=== PATIENT | female | born 2000 | race Caucasian/White ===

== ENCOUNTER → 2019-12-15 10:47 | Outpatient (CLI) | payer OTHER, SELFPAY ==
--- NOTE | 2019-12-15 10:48 | US_ITS ---
PROCEDURE: US OB /MATERNAL DETAIL CLINICAL INDICATION: 20 weeks gestation Anatomy exam COMPARISON: No exams were available for comparison FINDINGS: There is a single live fetus which is in cephalic presentation. heart and body motion noted. Placenta is closed and measures 3 cm transabdominal. The placenta is anterior and grade 1. Complete survey performed and was unremarkable on the submitted images as in PACS. No discrete anomalies identified on survey imaging by technologist. Active fetus. Three-vessel cord with satisfactory umbilical cord insertion. 4- chamber heart noted. Survey of brain & ventricles Unremarkable. Face and neck survey unremarkable. Diaphragm and chest views unremarkable. Abdomen: Both kidneys noted and unremarkable. Stomach noted and satisfactory. Spine: Survey of the spine satisfactory with no anomalies identified nor imaged. Both arms and legs noted. Amniotic Fluid: Adequate. Maternal adnexa: No significant findings. Measurements: Average ultrasound age 23weeks. Gestational Age 23weeks 2days Estimated due date by ultrasound age 1204/12/2020. Estimated weight 565g BPD = 23weeks OFD = 23weeks HC = 22weeks 2days AC = 23weeks 1day FL = 23weeks 3days Growth Percentile= 34percent% Heart Rate = 138bpm Cerebellum = 23 weeks 0 days Humerus = 23 weeks 0 days HC/AC is 1.1 CI is 77 percent FL/BPD is 75 percent FL/AC is 23 percent IMPRESSION: Live IUP in cephalic presentation with an average ultrasound age of 23 weeks. All parameters correlate with no obvious anomalies. Please see above for detail. Dictated by: Ramses Knutson MD 12/16/2019 09:40 Ramses Knutson MD in [place] 12/16/2019 09:40
== END ==
PROVIDERS: PCP Nurse Practitioner Obstetrics & Gynecology; Visit Provider Nurse Practitioner Obstetrics & Gynecology
DX: Z34.90 Encounter for supervision of normal pregnancy, unspecified, unspecified trimester (principal); Z3A.20 20 weeks gestation of pregnancy
CPT/HCPCS: 76805; 76811

== ENCOUNTER → 2020-01-23 11:52 | Outpatient (CLI) | payer OTHER, SELFPAY ==
[2020-01-23 12:20] LABS: Basophils % 0.3 % (0.1-2.0); Eosinophils # 0.1 K/mm3 (0.0-0.4); Eosinophils % 1.1 % (0.1-12.0); Hematocrit 34.7 % (37.0-47.0); Hemoglobin 11.2 g/dL (12.2-16.2); Lymphocytes # 1.7 K/mm3 (0.7-4.5); Lymphocytes % 16.5 % (10-50); Mean Corpuscular HGB Conc 32.3 g/dL (31.8-35.4); Mean Corpuscular Hemoglobin 30.4 pg (27.0-31.2); Mean Corpuscular Volume 94.1 fl (81-99); Mean Platelet Volume 9.4 fl (7.4-10.4); Monocytes # 0.5 K/mm3 (0.1-1.0); Monocytes % 5.1 % (1.7-9.3); Platelet Count 246 K/mm3 (142-424); Red Blood Count 3.69 M/mm3 (4.20-5.40); Red Cell Distribution Width 11.7 % (11.5-17.5); White Blood Count 10.4 K/mm3 (4.8-10.8)
[2020-01-23 12:47] LABS: Glucose,Fasting 90 mg/dl (74-100)
[2020-01-23 13:50] LABS: Glucose 1 Hour 108 mg/dL (74-100)
[2020-01-24 11:56] LABS: Rapid Plasma Reagin Ab Titer Non Reactive (NonRea<1:1)
[2020-01-24 12:23] LABS: HIV Screen 4th Generation wRfx Non Reactive (Non Reactive); Hepatitis B Surface Antigen Negative (Negative); Hepatitis C Antibody 0.1 s/co ratio (0.0-0.9); Rubella Antibodies, IgG 1.51 index (Immune >0.99)
== END ==
PROVIDERS: Visit Provider Nurse Practitioner Obstetrics & Gynecology
DX: Z34.90 Encounter for supervision of normal pregnancy, unspecified, unspecified trimester (principal)
CPT/HCPCS: 36415; 82951; 85025; 86592; 86703; 86762; 86850; 87340; 87380; G0432

== ENCOUNTER → 2020-03-16 15:59 | Outpatient (CLI) | payer OTHER, SELFPAY | PROVIDERS: Visit Provider Nurse Practitioner Obstetrics & Gynecology | DX: Z34.90 Encounter for supervision of normal pregnancy, unspecified, unspecified trimester (principal); Z3A.36 36 weeks gestation of pregnancy | CPT/HCPCS: 86403 ==

== ENCOUNTER → 2020-03-23 14:41 | Outpatient (CLI) | payer OTHER, SELFPAY ==
[2020-03-23 14:44] LABS: Microscopic, Urine URINE MICROSCOPIC (MICROSCOPIC)
[2020-03-23 15:44] LABS: Appearance,Urine SL CLOUDY (Clear); Bilirubin,Urine Negative (Negative); Blood, Urine TRACE-I (Negative); Color,Urine YELLOW (Yellow); Glucose,Urine (UA) Negative (Negative); Ketones,Urine Negative (Negative); Leukocyte Esterase,Urine 2+ (Negative); Nitrate,Urine Negative (Negative); PH,Urine 6.5 (5.0-8.5); Protein,Urine Negative (Negative); Urobilinogen,Urine 0.2 EU/dl (0.2)
[2020-03-23 16:18] LABS: Bacteria,Urine 4+ /lpf
== END ==
PROVIDERS: Visit Provider Nurse Practitioner Obstetrics & Gynecology
DX: Z3A.37 37 weeks gestation of pregnancy (principal)
CPT/HCPCS: 81001; 87086

== ENCOUNTER 2020-04-03 05:15 | Inpatient (IN) | payer OTHER, SELFPAY ==
[2020-04-03 05:24] VITALS: BMI 34.3
[2020-04-03 05:40] VITALS: BMI 34.3
[2020-04-03 05:45] VITALS: BP 148/82; PULSE 100; RESP 18; TEMP 36.8; O2SAT 99
[2020-04-03 06:19] LABS: Microscopic, Urine URINE MICROSCOPIC (MICROSCOPIC)
[2020-04-03 06:34] LABS: Appearance,Urine CLEAR (Clear); Bilirubin,Urine Negative (Negative); Blood, Urine Negative (Negative); Color,Urine YELLOW (Yellow); Glucose,Urine (UA) Negative (Negative); Ketones,Urine Negative (Negative); Leukocyte Esterase,Urine Negative (Negative); Nitrate,Urine Negative (Negative); Protein,Urine Negative (Negative); Specific Gravity, Urine 1.015 (1.005-1.030); Urobilinogen,Urine 0.2 EU/dl (0.2)
[2020-04-03 06:46] LABS: Amphetamine/Metha Screen,Urine Negative ng/ml (<1000); Barbiturates Screen,Urine Negative ng/ml (<200)
[2020-04-03 06:47] LABS: Benzodiazepines Screen,Urine Negative ng/ml (<200); Cannabinoid Screen,Urine Negative ng/ml (<50)
[2020-04-03 06:48] LABS: Cocaine Screen,Urine Negative ng/ml (<300)
[2020-04-03 06:49] LABS: Methadone Screen,Urine Negative ng/ml (<300); Opiate Screen,Urine Negative ng/ml (<300)
[2020-04-03 06:50] LABS: Phencyclidine Screen,Urine Negative ng/ml (<25)
[2020-04-03 06:53] LABS: Basophils % 0.3 % (0.1-2.0); Eosinophils # 0.2 K/mm3 (0.0-0.4); Eosinophils % 1.3 % (0.1-12.0); Hematocrit 33.1 % (37.0-47.0); Hemoglobin 10.4 g/dL (12.2-16.2); Lymphocytes # 2.3 K/mm3 (0.7-4.5); Lymphocytes % 18.2 % (10-50); Mean Corpuscular HGB Conc 31.3 g/dL (31.8-35.4); Mean Corpuscular Hemoglobin 26.2 pg (27.0-31.2); Mean Corpuscular Volume 83.6 fl (81-99); Mean Platelet Volume 9.4 fl (7.4-10.4); Monocytes # 0.6 K/mm3 (0.1-1.0); Monocytes % 4.3 % (1.7-9.3); Neutrophils # 9.7 K/mm3 (1.8-7.8); Neutrophils % 75.9 % (37.0-80.0); Platelet Count 307 K/mm3 (142-424); Red Blood Count 3.96 M/mm3 (4.20-5.40); Red Cell Distribution Width 13.5 % (11.5-17.5); White Blood Count 12.7 K/mm3 (4.8-10.8)
[2020-04-03 07:06] LABS: Coronavirus 19 IgG Antibody Negative (Negative); Coronavirus 19 IgM Antibody Negative (Negative)
--- NOTE | 2020-04-03 07:33 | HMH.PHAINT ---
MEDICATION RECONCILIATION COMPLETED ON PATIENT USING EXTERNAL FILL HISTORY FROM PHARMACY. -JENNIFER LOPEZ, J[place]ICAD
[2020-04-03 07:43] VITALS: BP 142/78; PULSE 84; RESP 18; TEMP 36.9; O2SAT 98
--- NOTE | 2020-04-03 08:22 | HMH.LABNOT ---
Labor Note - Subjective: Date: 04/03/20 Time: 08:22 regular contraction - Objective: NST:: Reactive Contractions:: every 2-3 minutes Cervical Dilation:: 4 Effacement:: 75% Station: -1 Membranes: artificially ruptured Comment:: There was copious clear fluid when I ruptured her membranes. - Assessment: Labor progressing?: Yes Cephalopelvic disproportion?: No Patient Problems: All Active Problems (Acute) - Plan: Anesthesia for epidural?: Yes Continue to labor down?: Yes Plan for ?: No Continue to monitor?: Yes Start pushing?: No
--- NOTE | 2020-04-03 08:22 | HMH.OBAPHP ---
OB - H&P: HPI Antepartum - History of Present Illness Chief complaint: She has pressure and occasional contractions at 39 weeks. History of present illness: She is a 19-year-old 1 now para 0 at 39+ weeks gestational age. She complains of pressure and occasional contractions. We have elected to augment her labor. - History of Present Criteria for establishing EDC:: LMP confirmed by 1st trimester US care: good care Ultrasounds: normal 1st trimester US, normal mid trimester US Obstetrical complications: none [facility] History I have reviewed the patient's past medical history: Yes *Have you ever received a pneumonia vaccine?: No *Have you received a flu vaccine this season?: Yes Other Surgeries: Yes: No Previous Surgery. 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 Para: 0 Review of Systems - Review of Systems Review of systems:: pertinent systems reviewed and negative unless documented below Meds Home Medications Medication Instructions Recorded Confirmed Type ondansetron 4 mg disintegrating 4 mg PO Q6H PRN #30 tab 12/05/19 04/03/20 Rx tablet Famotidine [Acid Client Coordinator] 20 mg PO DAILY 04/03/20 04/03/20 History Ferrous Sulfate 325 mg PO DAILY 04/03/20 04/03/20 History Vit Calc,Iron,Folic [Kpn] 1 tab PO DAILY 04/03/20 04/03/20 History Allergies Allergy/AdvReac Type Severity Reaction Status Date / Time No Known Allergies Allergy Verified 03/28/20 10:22 OB - H&P: Exam - Physical Exam Vital signs: Temp Pulse Resp BP Pulse Ox 98.5 F 84 18 142/78 H 98 04/03/20 07:43 04/03/20 07:43 04/03/20 07:43 04/03/20 07:43 04/03/20 07:43 - Constitutional no acute distress - Routine HEENT Exam Head: Present: normocephalic Eye: Present: EOMI, PERRL ENT: Present: mucous membranes moist - Routine Neck Exam Present: supple, full ROM - Routine Respiratory Exam Absent: accessory muscle use (good air entry bilaterally), respiratory distress, wheezes, crackles - Routine Cardiovascular Exam Present: RRR. Absent: murmur - Routine Abdominal Exam Present: soft, normoactive bowel sounds. Absent: tenderness, distended, guarding - Routine Rectal Exam Patient deferred: visual exam, digital exam - Routine Exam Patient deferred: external exam, groin exam, perineal exam - Routine Extremities Exam Present: full ROM. Absent: cyanosis, edema - Routine Skin Exam Present: intact. Absent: cyanosis - Routine Neurological Exam Present: alert, oriented X3 - Routine Psychiatric Exam Present: normal affect OB - Results - Labs Labs: Short CBC 04/03/20 Range/Units 05:45 WBC 12.7 H (4.8-10.8) K/mm3 Hgb 10.4 L (12.2-16.2) g/dL Hct 33.1 L (37.0-47.0) % Plt Count 307 (142-424) K/mm3 Urine 04/03/20 Range/Units 05:40 Urine Color Yellow (Yellow) Urine Appearance Clear (Clear) Urine pH 6.0 (5.0-8.5) Ur Specific [place] 1.015 (1.005-1.030) Urine Protein Negative (Negative) Urine Glucose (UA) Negative (Negative) OB - A/P Antepartum (1) Normal delivery Status: Acute - Additional Plan Planning to breastfeed?: Yes Plan: other Additional Information:: She is 39 weeks and this morning is 4 cm dilated 75% effaced and station -1. I ruptured membranes and there was copious clear fluid. I inserted an IUPC as well as a scalp clip. Nonstress test is reactive. We will expect a vaginal delivery.
--- NOTE | 2020-04-03 10:09 | P.PN_ITS ---
[facility] Anesthesia Checklist - Patient Identification Patient Identification: Arm Band, Verbal (Name & ) - Structural Data Admitted From: Home Planned Operative Procedure/s: Labor Epidural Consent for Planned Operative Procedure(s) Verified: Yes Verified Documents: Surgical Consent, History and Physical - Chart Verification Results Verified: CBC, UA (UDS) - Additional verifications Patient : Yes - Airway Assessment C-Spine Mobility Assessed: Yes TMJ Mobility Assessed: Yes Dentition: Good Dentition - Neurological Assessment Level of Consciousness: Awake, Alert, Appropriate, Follows Commands Hx Seizures: No Numbness or tingling in extremities: No - Anesthesia Plan Anesthesia Risk discussed: Yes Anesthesia Plan: Verified ASA Class: II Anesthesia Type: Epidural [facility] History I have reviewed the patient's past medical history: Yes *Have you ever received a pneumonia vaccine?: No *Have you received a flu vaccine this season?: Yes Anesthesia experience/problems:: None Other Surgeries: Yes: No Previous Surgery. 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
--- NOTE | 2020-04-03 11:13 | P.PN_ITS ---
Labor Note - Subjective: Date: 04/03/20 Time: 11:13 regular contraction - Objective: NST:: Reactive Contractions:: every 2-3 minutes Cervical Dilation:: 7 Effacement:: 100% Station: 0 Membranes: artificially ruptured - Fetus: monitoring type:: Internal - Assessment: Labor progressing?: Yes Cephalopelvic disproportion?: No Patient Problems: All Active Problems Normal delivery (Acute) (Acute) - Plan: Anesthesia for epidural?: Yes Continue to labor down?: Yes Plan for ?: No Continue to monitor?: Yes Start pushing?: No Comment:: She is having a few decelerations with contractions. She is 7 to 8 cm 100% St ation 0. We will go ahead and start an amnioinfusion. She is on oxygen. We will expect a vaginal delivery.
--- NOTE | 2020-04-03 14:08 | HMH.LABNOT ---
Labor Note - Subjective: Date: 04/03/20 Time: 13:45 irregular contractions - Objective: NST:: Reactive Contractions:: every 4-5 minutes Cervical Dilation:: 9-10 Effacement:: 100% Membranes: artificially ruptured - Fetus: Monitoring?: Yes monitoring type:: Internal - Assessment: Labor progressing?: Yes Cephalopelvic disproportion?: No Patient Problems: All Active Problems Normal delivery (Acute) (Acute) - Plan: Anesthesia for epidural?: Yes Continue to labor down?: Yes Plan for ?: No Continue to monitor?: Yes Start pushing?: No Comment:: We will allow the head to continue to come down a little bit more. She feels pressure with contractions so we will have her bear down as well with each contraction.
[2020-04-03 14:56] LABS: Cord Blood PH 7.19 (7.35-7.45)
--- NOTE | 2020-04-03 15:09 | HMH.DN ---
- Delivery Note Delivery Date:: 04/03/20 Delivery Time:: 14:33 Anesthesia Type: Epidural Was labor medically induced?: Yes Induction method: per pitocin protocol Gestational age (weeks): 39 delivered prior to 39 weeks?: No Gender: Female at 1 minute: 8 at 5 minutes: 9 LAC or MLE?: LAC Delivery Procedure:: She is a 19-year-old 1 para 0 who was term and was feeling lots of pressure. As result of that we elected to augment her labor at term. She was started on IV oxytocin and had her membranes ruptured. Under labor epidural she progressed to full dilation and delivered spontaneously a liveborn female child at 2:33 PM in the afternoon of April 03, 2020. On deliver the head the anterior shoulder then delivered followed by the rest the infant's body atraumatically. The baby was vigorous and cried spontaneously. The oropharynx and nasopharynx were bulb suction. We allowed the cord to continue to pulsate for approximately 1 minute. Of note the cord was quite short. The cord was then doubly clamped and cut and the infant was placed on the mother's abdomen for further care. The nurses assigned Apgars of 8 at 1 minute and 9 at 5 minutes. She then received IV oxytocin and using gentle traction on the cord and countertraction the fundus I was able to easily deliver the placenta intact. Had normal three-vessel cord. She had a small left posterior vaginal laceration near the introitus that was repaired with interrupted 3-0 Vicryl Rapide suture. She has been Rh- blood, she is rubella immune and was group B streptococcus negative. She plans to breast-feed. Her estimated blood loss was just 200 cc. Laceration:: vaginal Placental Delivery Description: Spontaneous
[2020-04-03 20:31] VITALS: BP 129/79; PULSE 102; RESP 18; TEMP 36.9; O2SAT 99
[2020-04-04 04:54] VITALS: BP 117/61; PULSE 94; RESP 18; TEMP 36.8; O2SAT 100
[2020-04-04 06:52] LABS: Hemoglobin 9.3 g/dL (12.2-16.2)
[2020-04-04 09:33] VITALS: BP 131/82; PULSE 99; RESP 18; TEMP 37.1; O2SAT 97
--- NOTE | 2020-04-04 09:47 | SW/DCPLANNER ---
Addendum entered by Karen Westbrook 04/04/20 10:06: I have made a referral to E[facility] with [facility] program in [place]. Original Note: I have received a referral for this patient regarding: positive THC for once visit. Patient positive urine drug screen was on 12/05/2019 which was positive for THC. Patient was also tested on: 01/01, 01/22, 02/12, 03/28 and 04/03 which were all negative. Patient infant female (Noemi Painter) was born on 04/03/2020. Infants father (Bud Painter 01/28/94) was present at time of my visit. Patient, Bud and infant will reside at [address] [place] [address] in [facility] [address] . This is patient and fathers first child. Patient will become established with [facility] and is interested in [facility] program and I will make this referral today. Patient does have: crib, carseat, clothing, diapers and will be . Patient anticipates discharge home tomorrow. Patient has no further questions or needs at this time.
--- NOTE | 2020-04-04 10:31 | HMH.ACPN2 ---
Internal Medicine - PN: Subj *Date: 04/04/20 *Time: 10:31 Interval history: She is 1 day from a vaginal delivery. She is doing very well. She is eating and drinking and ambulating. She is breast-feeding. Her lochia is normal. Exam Vital signs and Labs for Last 24 Hours: Temp Pulse Resp BP Pulse Ox 98.3 F 94 H 18 117/61 100 04/04/20 04:54 04/04/20 04:54 04/04/20 04:54 04/04/20 04:54 04/04/20 04:54 Laboratory Results - last 24 hr 04/03/20 14:51: Cord ABG pH 7.19 L* 04/04/20 06:27: Hgb 9.3 L, Hct 29.0 L 04/04/20 06:27: Baby's Rh Status Positive I & O for Last 24 hours: Intake & Output 04/01/20 04/02/20 04/03/20 04/04/20 11:59 11:59 11:59 11:59 Weight 176 lb - Constitutional no acute distress - *Routine HEENT Exam Head: Present: normocephalic Eye: Present: EOMI, PERRL ENT: Present: mucous membranes moist Assessment and Plan (1) Normal delivery Status: Acute Category: Medical Code(s): O80 - Encounter for full-term uncomplicated delivery - Assessment and plan all Dx Assessment and Plan for all problems:: She is doing very well this morning. We will plan to send her home tomorrow.
[2020-04-04 12:35] VITALS: BP 137/63; PULSE 106; RESP 18; TEMP 36.8; O2SAT 97
[2020-04-04 16:33] VITALS: BP 132/75; PULSE 95; RESP 18; TEMP 36.8; O2SAT 99
--- NOTE | 2020-04-05 09:18 | HMH.OBDCSM ---
General - General Admission date:: 04/03/20 Discharge date: 04/05/20 HPI - History of Present Illness History of present illness: She is a 19-year-old 2 now para 1 aborta 1 who is 39 weeks gestational age. She was feeling pressure and discomfort so we elected to induce her labor at term. Hospital Course Hospital Course: She was started on IV oxytocin had her membranes ruptured. Under labor epidural progressed to full dilation and delivered spontaneously a liveborn female child at 2:32 PM in the afternoon of April 03, 2020. The baby weighed 6 pounds 5 ounces and was 17 inches long. She had Apgars of 8 at 1 minute and 9 at 5 minutes. She is breast-feeding. She has done well and is eating and drinking and ambulating. She is breast-feeding. She has be Rh- blood and has received RhoGam. She is rubella immune and was group B streptococcus negative. Her supplier quality specialist Dr. Harmon. She is discharged home to follow-up with me in approximately 2 weeks time. She will continue with her vitamins and iron. Her condition on discharge is stable and improved. Rhogam Administration: Given Objective Vital signs: Temp Pulse Resp BP Pulse Ox 98.3 F 95 H 18 132/75 99 04/04/20 16:33 04/04/20 16:33 04/04/20 16:33 04/04/20 16:33 04/04/20 16:33 no acute distress - *Routine HEENT Exam Head: Present: normocephalic Eye: Present: EOMI, PERRL ENT: Present: mucous membranes moist Results Labs on day of discharge: Labs from last 24 hours 04/04/20 04/04/20 12:20 06:27 Blood Type B Negative Antibody Screen Negative Screen Negative Baby's Rh Status Positive Rhogam Infusion Rhogam release DS: Diagnosis - Discharge Diagnosis (1) Normal delivery Status: Acute Discharge Plan - Patient Discharge Instructions ACTIVITY: No heavy lifting DIET: continue same diet Additional Instructions: NOTHING IN THE VAGINA FOR 6 WEEKS NO HEAVY LIFTING OR STRENUOUS ACTIVITY. Patient Instructions: Depression, Hemorrhage, DI for Labor and Delivery, Vaginal , DI for Pre-eclampsia, Preventing the Spread of Coronavirus Discharge Instructions - Follow up Plan Follow up with: Sameer Richardson MD [Primary Care Provider] - Disposition: Home, Self-Usp Medications: Home Medications Medication Instructions Recorded Confirmed Type ondansetron 4 mg disintegrating 4 mg PO Q6H PRN #30 tab 12/05/19 04/03/20 Rx tablet Famotidine [Acid Service Car Operator] 20 mg PO DAILY 04/03/20 04/03/20 History Ferrous Sulfate 325 mg PO DAILY 04/03/20 04/03/20 History Vit Calc,Iron,Folic [Kpn] 1 tab PO DAILY 04/03/20 04/03/20 History Prescriptions/Medication Reconciliation: Continued ondansetron 4 mg disintegrating tablet 4 mg PO Q6H PRN #30 tab PRN Reason: nausea and vomiting Vit Calc,Iron,Folic [Kpn] 1 tab PO DAILY Famotidine [Acid Service Car Operator] 20 mg PO DAILY Ferrous Sulfate 325 mg PO DAILY - Problem Reconciliation Problems Reviewed?: Yes
== END 2020-04-05 11:33 | disposition home or self-care (01) | DRG 807 ==
PROVIDERS: Admitting Provider Nurse Practitioner Obstetrics & Gynecology; PCP Nurse Practitioner Obstetrics & Gynecology; Visit Provider Nurse Practitioner Obstetrics & Gynecology
DX: O70.0 First degree perineal laceration during delivery (principal); Z37.0 Single live birth; Z3A.39 39 weeks gestation of pregnancy; Z23 Encounter for immunization
CPT/HCPCS: 59409; 36415; 59025; 80305; 81001; 82800; 85014; 85018; 85025; 85461; 86328; 86850; 90686; 94761; C1758; J2790

== ENCOUNTER → 2021-04-12 13:50 | Outpatient (CLI) | payer OTHER, SELFPAY ==
[2021-04-12 15:17] LABS: HCG,Quantitative 8852 mIU/ml (0-5.42)
== END ==
PROVIDERS: Visit Provider Obstetrics & Gynecology
DX: Z34.90 Encounter for supervision of normal pregnancy, unspecified, unspecified trimester (principal)
CPT/HCPCS: 36415; 84702

== ENCOUNTER → 2021-04-26 14:25 | Outpatient (CLI) | payer OTHER, SELFPAY ==
--- NOTE | 2021-04-26 14:31 | US_ITS ---
FINAL REPORT CLINICAL HISTORY: dates FINDINGS: Sonographic images of the pelvis were obtained. There is a single living intrauterine . [place]-rump length measures 1.49 cm corresponding to 7 weeks 6 day gestation. Heartbeat is detected at 165 bpm. IMPRESSION: Single living intrauterine . Reviewed, Interpreted and Dictated by Pranav Martini III, MD Transcribed by Ava Stokes Authenticated by Pranav Martini III, MD on 04/26/2021 04:29:19 PM [facility]
== END ==
PROVIDERS: PCP Pediatrics; Visit Provider Obstetrics & Gynecology
DX: Z34.90 Encounter for supervision of normal pregnancy, unspecified, unspecified trimester (principal)
CPT/HCPCS: 76801

== ENCOUNTER → 2021-05-21 15:20 | Outpatient (CLI) | payer OTHER, SELFPAY ==
[2021-05-21 15:55] LABS: Basophils # 0.1 K/mm3 (0-0.2); Basophils % 0.9 % (0.1-2.0); Eosinophils # 0.2 K/mm3 (0.0-0.4); Eosinophils % 1.4 % (0.1-12.0); Hematocrit 36.2 % (37.0-47.0); Hemoglobin 11.8 g/dL (12.2-16.2); Lymphocytes # 2.3 K/mm3 (0.7-4.5); Lymphocytes % 20.5 % (10-50); Mean Corpuscular HGB Conc 32.7 g/dL (31.8-35.4); Mean Corpuscular Hemoglobin 29.2 pg (27.0-31.2); Mean Corpuscular Volume 89.1 fl (81-99); Mean Platelet Volume 10.1 fl (7.4-10.4); Monocytes # 0.5 K/mm3 (0.1-1.0); Monocytes % 4.3 % (1.7-9.3); Neutrophils % 72.8 % (37.0-80.0); Platelet Count 278 K/mm3 (142-424); Red Blood Count 4.06 M/mm3 (4.20-5.40); Red Cell Distribution Width 14.7 % (11.5-17.5)
[2021-05-21 17:43] LABS: Thyroid Stimulating Hormone 0.37 uIU/mL (0.465-4.68)
[2021-05-23 08:31] LABS: Hepatitis B Surface Antigen Negative (Negative); Hepatitis C Antibody 0.1 s/co ratio (0.0-0.9); Rubella Antibodies, IgG 1.26 index (Immune >0.99)
[2021-05-23 11:14] LABS: Rapid Plasma Reagin Ab Titer Non Reactive (NonRea<1:1)
[2021-05-23 12:11] LABS: HIV Screen 4th Generation wRfx Non Reactive (Non Reactive)
== END ==
PROVIDERS: PCP Family Medicine; Visit Provider Obstetrics & Gynecology
DX: Z34.90 Encounter for supervision of normal pregnancy, unspecified, unspecified trimester (principal); R09.89 Other specified symptoms and signs involving the circulatory and respiratory systems
CPT/HCPCS: 36415; 84443; 85025; 86592; 86703; 86762; 86850; 87086; 87088; 87186; 87340; 87380; G0432

== ENCOUNTER → 2021-07-19 12:37 | Outpatient (CLI) | payer OTHER, SELFPAY ==
--- NOTE | 2021-07-19 12:37 | US_ITS ---
FINAL REPORT CLINICAL HISTORY: anatomy scan, OB complete FINDINGS: There is a single live intrauterine gestation. Presentation is cephalic. Placenta is posterior, height, grade 1. movement is noted. Heart rate is measured at 146 beats per minute. Three-vessel cord with satisfactory umbilical cord insertion. Four-chamber heart is noted. brain and ventricles are unremarkable. Chest and diaphragm are unremarkable. ABDOMEN: Bladder is unremarkable. Stomach is unremarkable. SPINE: No anomalies identified. Both arms and legs noted. AMNIOTIC FLUID: Appropriate amount. MEASUREMENTS: ULTRASOUND AGE: 20 weeks 2 days. GESTATION AGE: 20 weeks 2 days. ESTIMATED WEIGHT: 344 g GROWTH PERCENTILE: 45 % BPD: 4.7 cm corresponding with 20 weeks 3 days. OFD: 6 cm corresponding with 20 weeks 3 days. HC: 17 cm corresponding with 19 weeks 5 days. AC: 15.1 cm corresponding with 20 weeks 3 days. FL: 13.3 cm corresponding with 20 weeks 3 days. CEREBELLUM: 2 cm corresponding with 20 weeks 1 days. HUMERUS: 3.1 cm corresponding with 20 weeks 2 days. NUCH FOLD: 1.5 mm HC/AC: 1.13 CI: 79 FL/BPD: 70% FL/AC: 22% IMPRESSION: Single living IUP with an ultrasound age of 20 weeks 2 days. Reviewed, Interpreted and Dictated by Pranav Martini III, MD Transcribed by Magaly Grigsby Authenticated by Pranav Martini III, MD on 07/19/2021 02:34:05 PM [facility]
== END ==
PROVIDERS: PCP Family Medicine; Visit Provider Obstetrics & Gynecology
DX: Z34.90 Encounter for supervision of normal pregnancy, unspecified, unspecified trimester (principal)
CPT/HCPCS: 76805

== ENCOUNTER → 2021-09-13 14:23 | Outpatient (CLI) | payer OTHER, SELFPAY ==
[2021-09-13 15:30] LABS: Basophils # 0.2 K/mm3 (0-0.2); Basophils % 1.8 % (0.1-2.0); Eosinophils # 0.1 K/mm3 (0.0-0.4); Eosinophils % 1.3 % (0.1-12.0); Hematocrit 30.1 % (37.0-47.0); Hemoglobin 9.9 g/dL (12.2-16.2); Lymphocytes % 19.6 % (10-50); Mean Corpuscular HGB Conc 32.9 g/dL (31.8-35.4); Mean Corpuscular Hemoglobin 27.7 pg (27.0-31.2); Mean Corpuscular Volume 84.3 fl (81-99); Mean Platelet Volume 9.4 fl (7.4-10.4); Monocytes # 0.3 K/mm3 (0.1-1.0); Monocytes % 3.4 % (1.7-9.3); Neutrophils # 7.4 K/mm3 (1.8-7.8); Platelet Count 328 K/mm3 (142-424); Red Blood Count 3.57 M/mm3 (4.20-5.40); Red Cell Distribution Width 14.3 % (11.5-17.5)
[2021-09-13 16:02] LABS: Glucose,Fasting 82 mg/dl (74-100)
[2021-09-13 17:21] LABS: Glucose 1 Hour 122 mg/dL (74-100)
== END ==
PROVIDERS: Visit Provider Obstetrics & Gynecology
DX: Z34.90 Encounter for supervision of normal pregnancy, unspecified, unspecified trimester (principal)
CPT/HCPCS: 36415; 82951; 85025

== ENCOUNTER 2021-09-16 11:36 | Outpatient (CLI) | payer OTHER, SELFPAY ==
[2021-09-16 11:40] VITALS: BP 126/61; PULSE 105; RESP 18; O2SAT 100
== END 2021-09-16 11:55 | disposition home or self-care (01) ==
LOC: LAB 11:37 → INF 12:00
PROVIDERS: Visit Provider Obstetrics & Gynecology
DX: O26.899 Other specified pregnancy related conditions, unspecified trimester (principal); Z67.91 Unspecified blood type, Rh negative; Z3A.28 28 weeks gestation of pregnancy
CPT/HCPCS: 96372; J2790

== ENCOUNTER → 2021-10-24 10:01 | Outpatient (CLI) | payer OTHER, SELFPAY ==
--- NOTE | 2021-10-24 10:05 | US_ITS ---
FINAL REPORT CLINICAL HISTORY: Growth and HECTOR FINDINGS: There is a single live intrauterine gestation. Presentation is cephalic. Placenta is posterior, high, grade 2. Heart rate is 158 beats per minute. movement and respiratory motion is seen. AMNIOTIC FLUID: Appropriate amount. HECTOR: 11.5 cm MEASUREMENTS: ULTRASOUND AGE: 34 weeks 1 day. GESTATION AGE: 34 weeks 1 day. ESTIMATED WEIGHT: 2334 g GROWTH PERCENTILE: 40% BPD: 8.5 cm corresponding with 34 weeks 3 days. OFD: 10.7 cm corresponding with 34 weeks 1 days. HC: 30.4 cm corresponding with 33 weeks 6 days. AC: 30.1 cm corresponding with 34 weeks 1 days. FL: 6.6 cm corresponding with 34 weeks 0 days. HC/AC: 1.01 CI: 79% FL/BPD: 77% FL/AC: 22% IMPRESSION: Single living IUP with an ultrasound age of 34 weeks 1 days. HECTOR of 11.5 cm Reviewed, Interpreted and Dictated by Kamari Nickerson MD Transcribed by Magaly Grigsby Authenticated and [facility]
== END ==
PROVIDERS: Visit Provider Obstetrics & Gynecology
DX: O36.5990 Maternal care for other known or suspected poor fetal growth, unspecified trimester, not applicable or unspecified (principal)
CPT/HCPCS: 76816

== ENCOUNTER → 2021-11-08 06:42 | Outpatient (CLI) | payer OTHER, SELFPAY | PROVIDERS: Visit Provider Obstetrics & Gynecology | DX: Z34.90 Encounter for supervision of normal pregnancy, unspecified, unspecified trimester (principal) | CPT/HCPCS: 86403 ==

== ENCOUNTER 2021-11-22 05:12 | Inpatient (IN) | payer OTHER, SELFPAY ==
[2021-11-22] VITALS (11 sets, daily range): BP systolic 90–148; BP diastolic 47–98; PULSE 90–111; RESP 12–18; TEMP 36.4–36.6; O2SAT 97–100; BMI 38.0
[2021-11-22 06:08] LABS: Coronavirus 19, PCR Not Detected (NotDetected); Influenza A, PCR Not Detected (NotDetected); Influenza B, PCR Not Detected (NotDetected)
[2021-11-22 06:08] LABS: Microscopic, Urine URINE MICROSCOPIC (MICROSCOPIC)
[2021-11-22 06:17] LABS: Appearance,Urine CLOUDY (Clear); Bilirubin,Urine Negative (Negative); Blood, Urine Negative (Negative); Color,Urine YELLOW (Yellow); Glucose,Urine (UA) Negative (Negative); Ketones,Urine Negative (Negative); Leukocyte Esterase,Urine 1+ (Negative); Nitrate,Urine Negative (Negative); Protein,Urine 1+ (Negative); Specific Gravity, Urine 1.015 (1.005-1.030); Urobilinogen,Urine 0.2 EU/dl (0.2)
[2021-11-22 06:18] LABS: Basophils # 0.1 K/mm3 (0-0.2); Basophils % 0.7 % (0.1-2.0); Eosinophils # 0.2 K/mm3 (0.0-0.4); Eosinophils % 1.5 % (0.1-12.0); Hematocrit 30.6 % (37.0-47.0); Hemoglobin 9.9 g/dL (12.2-16.2); Lymphocytes # 2.5 K/mm3 (0.7-4.5); Lymphocytes % 25.2 % (10-50); Mean Corpuscular HGB Conc 32.3 g/dL (31.8-35.4); Mean Corpuscular Hemoglobin 26.2 pg (27.0-31.2); Mean Corpuscular Volume 81.2 fl (81-99); Mean Platelet Volume 11.5 fl (7.4-10.4); Monocytes # 0.4 K/mm3 (0.1-1.0); Monocytes % 4.4 % (1.7-9.3); Neutrophils # 6.7 K/mm3 (1.8-7.8); Neutrophils % 68.2 % (37.0-80.0); Platelet Count 279 K/mm3 (142-424); Red Blood Count 3.77 M/mm3 (4.20-5.40); Red Cell Distribution Width 17.2 % (11.5-17.5); White Blood Count 9.8 K/mm3 (4.8-10.8)
[2021-11-22 06:32] LABS: Barbiturates Screen,Urine Negative ng/ml (<200)
[2021-11-22 06:33] LABS: Amphetamine/Metha Screen,Urine Negative ng/ml (<1000); Benzodiazepines Screen,Urine Negative ng/ml (<200)
[2021-11-22 06:34] LABS: Cannabinoid Screen,Urine Negative ng/ml (<50)
[2021-11-22 06:35] LABS: Cocaine Screen,Urine Negative ng/ml (<300); Methadone Screen,Urine Negative ng/ml (<300)
[2021-11-22 06:36] LABS: Opiate Screen,Urine Negative ng/ml (<300); Phencyclidine Screen,Urine Negative ng/ml (<25)
[2021-11-22 06:40] LABS: Bacteria,Urine Trace /lpf
[2021-11-22 07:56] LABS: Chloride 107 mmol/L (98-107); Potassium 4.2 mmoL/L (3.5-5.1); Sodium 135 mmol/L (136-145)
[2021-11-22 07:59] LABS: Alanine Aminotransferase 17 U/L (12-78); Albumin Level 3.1 g/dl (3.5-5.0); Alkaline Phosphatase 194 U/L (38-126); Anion Gap 10.2 mEq/L (5-15); Aspartate Amino Transferase 29 U/L (14-36); Bilirubin,Total 0.3 mg/dl (0.2-1.3); Blood Urea Nitrogen 9 mg/dl (7-17); Carbon Dioxide 22 mmol/L (22.0-30.0); Creatinine Clearance Estimated 204 mL/min (50-200); Estimated Glomerular Filt Rate 124 ml/min (>60); GFR (African American) 150 ML/MIN (>60); Globulin 3.1 g/dL (1.3-3.2); Total Protein,Serum 6.2 g/dl (6.3-8.2)
[2021-11-22 08:00] LABS: Calcium 9.9 mg/dl (8.4-10.2); Glucose 104 mg/dl (74-100)
--- NOTE | 2021-11-22 09:19 | HMH.HP ---
*Admission Date: 11/22/21 *Chief complaint: induction of labor *History of present illness: 21 yo @ 38 3/7 weeks admitted for induction of labor care at [facility]--Dr. Najera PROSPER 12/04/21; dating by LMP = 7 6 ultrasound Elevated blood pressure and 100mg protein on urine dip at office appointment 11/21/21 Induction of labor recommended for induced hypertension LFTs normal No headache, visual changes or epigastric pain complicated by anemia (Hgb 9.9) and Rh negative maternal status Rhogam prophylaxis given 09/13/21 Recent estimate of growth 40% [facility] History I have reviewed the patient's past medical history: Yes Medical History: Denies:: Seizures *Have you ever received a pneumonia vaccine?: No *Have you received a flu vaccine this season?: No Other Surgeries: Yes: No Previous Surgery. 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 Para: 1 Review of Systems - Review of Systems Review of systems:: pertinent systems reviewed and negative unless documented below - Eyes Denies blurry vision - *Gastrointestinal Denies abdominal pain - *Genitourinary Denies abnormal vaginal bleeding - *Neurologic Denies headache(s) Meds Home Medications Medication Instructions Recorded Confirmed Type prenat.vits,jameel,oig-ocqj-aeknd 1 tab PO DAILY #30 tab 05/03/21 11/22/21 Rx Omeprazole 20 mg PO DAILY 11/22/21 11/22/21 History Allergies Allergy/AdvReac Type Severity Reaction Status Date / Time No Known Allergies Allergy Verified 11/21/21 10:52 Exam Vital signs and Labs for Last 24 Hours: Temp Pulse Resp BP Pulse Ox 97.8 F 104 H 18 148/98 H 100 11/22/21 06:44 11/22/21 06:44 11/22/21 06:44 11/22/21 06:44 11/22/21 06:44 Laboratory Results - last 24 hr 11/22/21 05:47: WBC 9.8, RBC 3.77 L, Hgb 9.9 L, Hct 30.6 L, MCV 81.2, MCH 26.2 L, MCHC 32.3, RDW 17.2, Plt Count 279, MPV 11.5 H, Neut % (Auto) 68.2, Lymph % (Auto) 25.2, [place] % (Auto) 4.4, Eos % (Auto) 1.5, Baso % (Auto) 0.7, Neut # (Auto) 6.7, Lymph # (Auto) 2.5, [place] # (Auto) 0.4, Eos # (Auto) 0.2, Baso # (Auto) 0.1 11/22/21 05:47: Urine Color Yellow, Urine Appearance Cloudy, Urine pH 7.0, Ur Specific [place] 1.015, Urine Protein 1+, Urine Glucose (UA) Negative, Urine Ketones Negative, Urine Blood Negative, Urine Nitrate Negative, Urine Bilirubin Negative, Urine Urobilinogen 0.2, Ur Leukocyte Esterase 1+ A, Urine RBC None, Urine WBC 5-10, Ur Squamous Epith Cells 3-5, Urine Bacteria Trace 11/22/21 05:47: Urine Opiates Screen Negative, Urine Methadone Screen Negative, Ur Barbituates Screen Negative, Ur Phencyclidine Scrn Negative, Ur Amphetamines Screen Negative, U Benzodiazepines Scrn Negative, Urine Cocaine Screen Negative, U Marijuana (THC) Screen Negative 11/22/21 05:47: Blood Type B Negative, Antibody Screen Negative 11/22/21 05:47: Sodium 135 L, Potassium 4.2, Chloride 107, Carbon Dioxide 22, Anion Gap 10.2, BUN 9, Creatinine 0.60, Estimated Creat Clear 204, Estimated GFR 124, Est GFR ( Amer) 150, Glucose 104 H, Calcium 9.9, Total Bilirubin 0.3, AST 29, ALT 17, Alkaline Phosphatase 194 H, Total Protein 6.2 L, Albumin 3.1 L, Globulin 3.1, Albumin/Globulin Ratio 1.0 L 11/22/21 05:50: SARS-CoV-2 (PCR) Not detected, Influenza A Untype (PCR) Not detected, Influenza Type B (PCR) Not detected I & O for Last 24 hours: Intake & Output 11/19/21 11/20/21 11/21/21 11/22/21 11:59 11:59 11:59 11:59 Weight 195 lb - Constitutional no acute distress - *Routine HEENT Exam Head: Present: normocephalic Eye: Absent: conjunctival icterus, scleral injection ENT: Present: mucous membranes moist - *R
--- NOTE | 2021-11-22 10:28 | HMH.LABNOT ---
Labor Note - Subjective: Date: 11/22/21 Time: 10:28 Comment:: called to evaluate bradycardia approximately 20 minutes after epidural placement, heart tones dropped into the 90s, with slow resolution pitocin turned off and patient repositioned, with supplemental O2 intermittent resolution of bradycardia in short term with subsequent decrease emergent cs called with heart rate in the 70s for 3 minutes patient counseled for immediate delivery with cs and questions answered consent form signed - Objective: Cervical Dilation:: 4 Effacement:: 75% Station: -1 Membranes: artificially ruptured - Fetus: monitoring type:: Internal - Assessment: Patient Problems: All Active Problems bradycardia (Acute) 38 weeks gestation of (Acute) PIH ( induced hypertension) (Acute) Anemia affecting (Acute) Rh negative status during (Acute) Urinary tract infection affecting (Acute) Positive urine drug screen (Acute) (Acute)
[2021-11-22 10:43] LABS: Cord Blood PH 7.06 (7.35-7.45)
--- NOTE | 2021-11-22 11:35 | P.PN_ITS ---
[facility] Anesthesia Checklist - Patient Identification Patient Identification: Arm Band - Structural Data Admitted From: Inpatient Planned Operative Procedure/s: Labor Epidural/Primary C/S Consent for Planned Operative Procedure(s) Verified: Yes Verified Documents: Surgical Consent, History and Physical - NPO Status Verified Time NPO: 00:00 - Additional verifications Anesthesia Reactions: No - Airway Assessment C-Spine Mobility Assessed: Yes TMJ Mobility Assessed: Yes Dentition: Good Dentition - Neurological Assessment Level of Consciousness: Awake, Alert - Anesthesia Plan Anesthesia Risk discussed: Yes Anesthesia Plan: Verified ASA Class: II Anesthesia Type: Epidural [facility] History I have reviewed the patient's past medical history: Yes Medical History: Denies:: Seizures *Have you ever received a pneumonia vaccine?: No *Have you received a flu vaccine this season?: No Anesthesia experience/problems:: nac Other Surgeries: Yes: No Previous Surgery. 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
--- NOTE | 2021-11-22 11:35 | P.PN_ITS ---
[facility] Anesthesia Record Part I Intake, IV Amount: 800 Estimated blood loss (mL): 800 Urine output (mL): 100 Blood Pressure: 113/73 SaO2: 97 Pulse Rate: 105 Respiratory Rate: 16 Temperature: 98 F Patient is:: Awake, Stable Stable to PACU at:: 11:25
--- NOTE | 2021-11-22 11:53 | P.OP_ITS ---
Date of procedure: 11/22/21 Pre-op Diagnosis:: 1. 38 4/7 2. induced hypertension 3. bradycardia Post-op Diagnosis:: 1. 38 4/7 2. induced hypertension 3. bradycardia 4. Placental abruption Procedure performed:: Low Transverse C Section Surgeon:: Prachi Najera MD CREDIT COLLECTION SPECIALIST:: Other Anesthesia: epidural Estimated blood loss (mL): 800 Operative findings:: Live born female infant in vertex presentation Apgars 6 (1min) and 9 (5 min) cord pH 7.06 Moderate clot in uterus at time of delivery Operative note:: The patient was taken to the OR and spin was prepped and draped in normal sterile fashion. A pfannenstiel skin incision was made with the scalpel and carried down to the fascia. The fascia was incised in the midline and sharply dissected off the rectus muscles. The muscles were in the midline and the peritoneum was entered sharply and extended bluntly. The Javi-O self retaining retractor was placed in the abdomen and a bladder flap was created. The uterus was incised in the lower uterine segment in a transverse fashion and extended bluntly. The was delivered in controlled fashion, without complication or shoulder dystocia. Approximately 300cc of clot was noted in the uterus at time of delivery, consistent with abruption. The was handed to awaiting nursing staff for evaluation after the umbilical cord was clamped and cut. Cord blood was collected and a cord segment was preserved. The FSE was still attached to the vertex at time of delivery and because the monitor was pulled through the uterus abdominally, additional antibiotics were ordered (Flagyl). The IUPC was removed vaginally. The placenta was manually extracted and noted to be intact; it was sent for pathology. The uterus was repaired with 0-vicryl in a running/locked fashion. A second layer was placed for hemostasis. The bladder flap was closed with 2-0 vicryl in a running fashion. The peritoneum was closed with 2-0 vicryl in a running fashion. The fascia was closed with #1 vicryl in a running fashion. The subcutaneous fat was closed with 2-0 vicryl in an interrupted fashion. The skin was closed with 2-0 stratafix in a subcuticular fashion. The patient tolerated the procedure well. Sponge, lap, needle and instrument counts were correct x 2. TAP block was placed by anesthesia after conclusion of procedure. She was taken to PACU awake and in stable condition. Condition: stable Disposition: PACU Specimens:: 1. Placenta 2. Cord pH Complications:: none
--- NOTE | 2021-11-22 12:10 | SUR.PHASEI ---
1158 Barber Watkins called and gave report to Barber Knott OB RN 1200 transported via bed to OB room. vital signs stable. denies pain. left in stable condition with Barber Knott OB RN at bedside.
--- NOTE | 2021-11-22 12:13 | SUR.PHASEI ---
LATE ENTRY 1130 QBL protocol initiated. Attempted to contact Dr. Najera by calling office, cell phone, and OB by Barber Watkins, MARTY. No answer. 2 units PRBC placed on hold. Lab notified of PRBC's on hold. 18g IV placed left forearm by Barber Watkins RN. 1137 Dr. Najera returned call and stated to proceed with protocol. Stated she was okay with only infusing routine pitocin at this time. No orders for methergine or hemabait ordered. No new orders given.
--- NOTE | 2021-11-22 12:45 | P.PN_ITS ---
[facility] Anesthesia Record Part II Discharge Time: 11:35 Destination: Obstetric PACU nurse assessment reviewed?: Yes Patient Condition:: Good Anesthesia Complications:: None Swallowing reflex intact?: Yes Cyanosis?: No Blood Pressure: 95/53 Pulse Rate: 106 Temperature: 97.5 F Mental Status: Alert & Oriented Pain level:: 0 Nausea and/or vomitting:: None Intake, IV Amount: 0
[2021-11-22 14:56] LABS: Hematocrit 24.3 % (37.0-47.0)
[2021-11-22 15:15] LABS: Hemoglobin 7.9 g/dL (12.2-16.2)
--- NOTE | 2021-11-22 16:26 | HMH.PHAVTE ---
[facility] Pharmacy VTE Monitoring - Patient Demographics Admission date: 11/22/21 Report Date: 11/22/21 Time: 16:26 Allergies/Adverse Reactions: Patient Allergies No Known Allergies Allergy (Verified 11/21/21 10:52) Height: 1.52 m Weight: 88.451 kg Patient Problems: Current Active Problems 38 weeks gestation of (Acute) PIH ( induced hypertension) (Acute) Anemia affecting (Acute) Rh negative status during (Acute) - VTE Risk Labs: VTE Related Lab Results Hgb 7.9 g/dL (12.2-16.2) L D 11/22/21 14:42 Hct 24.3 % (37.0-47.0) L 11/22/21 14:42 Plt Count 279 K/mm3 (142-424) 11/22/21 05:47 BUN 9 mg/dl (7-17) 11/22/21 05:47 Creatinine 0.60 mg/dl (0.52-1.04) 11/22/21 05:47 Estimated Creat Clear 204 mL/min (50-200) 11/22/21 05:47 - Prophylaxis VTE Prophylaxis Ordered?: Yes Types of VTE Prophylaxis: IPCS Thigh High Location of Applied Device: Bilateral Lower Extremeties
[2021-11-23] VITALS (21 sets, daily range): BP systolic 120–145; BP diastolic 62–89; PULSE 86–121; RESP 16–18; TEMP 36.6–36.9; O2SAT 98–100
[2021-11-23 07:02] LABS: Hematocrit 19.8 % (37.0-47.0); Hemoglobin 6.3 g/dL (12.2-16.2)
--- NOTE | 2021-11-23 13:09 | P.PN_ITS ---
Internal Medicine - PN: Subj *Date: 11/23/21 *Time: 13:09 Interval history: POD #1 primary CS Clinical evidence of placental abruption noted at time of delivery Hgb dropped from 9.9 at admission to 6.3 on POD#1 Transfusion of 2 units packed red cells in progress Currently asymptomatic with [id number]-[id number] anemia Lochia appropriate BP stable since delivery Tolerating regular diet Ambulating and voiding without difficulty Pain control sufficient Exam Vital signs and Labs for Last 24 Hours: Temp Pulse Resp BP Pulse Ox 98.3 F 110 H 18 130/62 98 11/23/21 12:52 11/23/21 12:52 11/23/21 12:52 11/23/21 12:52 11/23/21 12:52 Laboratory Results - last 24 hr 11/22/21 05:47: Blood Type B Negative, Antibody Screen Negative, Crossmatch (AHG) See Detail 11/22/21 14:42: Hgb 7.9 L D, Hct 24.3 L 11/23/21 06:00: Screen Negative, Baby's Rh Status Positive, Rhogam Infusion Rhogam release 11/23/21 06:13: Hgb 6.3 L* D, Hct 19.8 L* I & O for Last 24 hours: Intake & Output 11/21/21 11/22/21 11/23/21 11/24/21 11:59 11:59 11:59 11:59 Intake Total 800 / 800 250 / 250 Output Total 100 / 100 Balance 700 / 700 250 / 250 Weight 195 lb Microbiology Reports for the Last 24 Hours: Microbiology 11/22/21 05:47 Urine,Clean Catch Urine Culture - Preliminary Narrative: CONSTITUTIONAL: no acute distress HEENT: mucous membranes moist PULMONARY: breathing unlabored without audible wheezes CV: no tachycardia or visible JVD; normal LE peripheral pulses ABD: soft, ND; appropriately tender but no rebound/guarding : fundus firm below umbilicus SKIN: incision well approximated with no drainage, erythema or induration EXT: 1+ edema LEs NEURO: alert/oriented, no altered mental status PSYCH: appropriate mood and demeanor Assessment and Plan (1) 38 weeks gestation of Status: Acute Category: Medical Code(s): Z3A.38 - 38 weeks gestation of (2) PIH ( induced hypertension) Status: Acute Category: Medical Code(s): O13.9 - Gestational [- induced] hypertension without significant proteinuria, unspecified trimester (3) Anemia affecting Status: Acute Category: Medical Code(s): O99.019 - Anemia complicating , unspecified trimester (4) Rh negative status during Problem details: Fetus Rh positive Status: Acute Category: Medical Code(s): O26.899 - Other specified related conditions, unspecified trimester; Z67.91 - Unspecified blood type, Rh negative (5) bradycardia Status: Acute Category: Medical (6) S/P Status: Acute Category: Surgical Code(s): Z98.891 - History of uterine scar from previous surgery (7) Anemia due to acute blood loss Status: Acute Category: Medical Code(s): D62 - Acute posthemorrhagic anemia - Assessment and plan all Dx Assessment and Plan for all problems:: Transfusion 2 units packed red cells will repeat H/H after transfusion complete PO FeSO4 Advance postop care as tolerated
[2021-11-23 15:17] LABS: Hematocrit 28.1 % (37.0-47.0)
--- NOTE | 2021-11-24 12:09 | HMH.DCSUM ---
General - General Admission date:: 11/22/21 Discharge date: 11/24/21 HPI HPI: 21 yo @ 38 3/7 weeks admitted for induction of labor care at [facility]--Dr. Reinaldo CHENG 12/04/21; dating by LMP = 7 67 ultrasound Elevated blood pressure and 100mg protein on urine dip at office appointment 11/21/21 Induction of labor recommended for induced hypertension LFTs normal No headache, visual changes or epigastric pain complicated by anemia (Hgb 9.9) and Rh negative maternal status Rhogam prophylaxis given 09/13/21 Recent estimate of growth 40% Hospital Course Hospital Course: Transfusion of 2 units packed red cells given on POD #1 Post-transfusion Hgb 9.0 She was given IV iron therapy but IV blew snf through the dose and patient declined to have new IV started to complete the dose She is discharged home on POD #2 in stable condition She is tolerating a regular diet, ambulating and voiding without difficulty She is asmyptomatic with anemia and will continue PO ferrous sulfate after discharge Rhogam Administration: Given Objective Vital signs: Temp Pulse Resp BP Pulse Ox 98.1 F 102 H 16 120/70 99 11/23/21 14:13 11/23/21 14:13 11/23/21 14:13 11/23/21 14:13 11/23/21 14:13 Narrative: CONSTITUTIONAL: no acute distress HEENT: mucous membranes moist PULMONARY: breathing unlabored without audible wheezes CV: no tachycardia or visible JVD; normal LE peripheral pulses ABD: soft, ND; appropriately tender but no rebound/guarding : fundus firm below umbilicus SKIN: incision well approximated with no drainage, erythema or induration EXT: 1+ edema LEs NEURO: alert/oriented, no altered mental status PSYCH: appropriate mood and demeanor Results Labs on day of discharge: Labs from last 24 hours 11/23/21 11/22/21 15:09 05:47 Hgb 9.0 L D Hct 28.1 L Crossmatch (AHG) See Detail DS: Diagnosis - Discharge Diagnosis (1) 38 weeks gestation of Status: Acute (2) PIH ( induced hypertension) Status: Acute (3) Anemia affecting Status: Acute (4) Rh negative status during Status: Acute Problem details: Fetus Rh positive (5) bradycardia Status: Acute (6) S/P Status: Acute (7) Anemia due to acute blood loss Status: Acute Discharge Plan - Patient Discharge Instructions ACTIVITY: Continue current activity DIET: regular diet Additional Instructions: *Nothing in the vagina for 6 weeks* *No tub baths for 6 weeks* *No heavy lifting* *No strenuous activity* Patient Instructions: Depression, Hemorrhage, DI for , DI for Pre-eclampsia, [facility] Post Discharge Instructions - Follow up Plan Follow up with: Prachi Najera MD [Staff Physician] - 12/06/21 9:45 am Disposition: Home, Self-Care Condition at discharge:: Stable Home Medications: Home Medications Medication Instructions Recorded Confirmed Type prenat.vits,jameel,nhj-dahh-edidi 1 tab PO DAILY #30 tab 05/03/21 11/22/21 Rx Omeprazole 20 mg PO DAILY 11/22/21 11/22/21 History Ibuprofen [Motrin 400mg 800 mg PO Q6HP PRN #30 tab 11/24/21 Rx tablet] Oxycodone HCl [OxyIR 5mg tablet] 5 mg PO Q6HP PRN #24 tab 11/24/21 Rx Prescriptions/Medication Reconciliation: New Ferrous Sulfate [Ferrous Sulfate 325mg Tablet] 325 mg PO BID tab Oxycodone HCl [OxyIR 5mg tablet] 5 mg PO Q6HP PRN #24 tab PRN Reason: Moderate Pain Ibuprofen [Motrin 400mg tablet] 800 mg PO Q6HP PRN #30 tab PRN Reason: Mild To Moderate Pain Continued prenat.vits,jameel,ehm-erpp-emssi 1 tab PO DAILY #30 tab Omeprazole 20 mg PO DAILY - Problem Reconciliation Problems Reviewed?: Yes
== END 2021-11-24 14:10 | disposition home or self-care (01) | DRG 787 ==
PROVIDERS: Admitting Provider Obstetrics & Gynecology; Visit Provider Obstetrics & Gynecology
PROC: 10D00Z1 Extraction of Products of Conception, Low, Open Approach (ICD-10-PCS; CPT 59514; principal; 2021-11-22 10:25)
DX: O13.4 Gestational [pregnancy-induced] hypertension without significant proteinuria, complicating childbirth (principal); D62 Acute posthemorrhagic anemia; Z3A.38 38 weeks gestation of pregnancy; Z37.0 Single live birth; O99.02 Anemia complicating childbirth; O76 Abnormality in fetal heart rate and rhythm complicating labor and delivery; O45.93 Premature separation of placenta, unspecified, third trimester; O90.81 Anemia of the puerperium
CPT/HCPCS: 59514; 36415; 59025; 80053; 80305; 81001; 82800; 85014; 85018; 85025; 85461; 86850; 87086; 88307; 94761; C1758; C9290; C9803; G0283; J1756; J2405; J2790; P9016; U0003; U0005

== ENCOUNTER 2021-12-12 14:07 | Observation (INO) | payer OTHER, SELFPAY ==
[2021-12-12] VITALS (15 sets, daily range): BP systolic 102–145; BP diastolic 58–78; PULSE 74–125; RESP 14–28; TEMP 36.6–37.1; O2SAT 96–100; BMI 34.0; BMI 35.5
--- NOTE | 2021-12-12 14:27 | XR_ITS ---
FINAL REPORT CLINICAL HISTORY: recent LLL PE and infarction FINDINGS: The heart size is normal. The mediastinum is normal. There are left lower lobe opacities. There is a small left pleural effusion. There is no pneumothorax. There is no osseous abnormality. IMPRESSION: Small left pleural effusion with left lower lobe opacities that could represent atelectasis or pneumonia. Reviewed, Interpreted and Dictated by Pranav Martini III, MD Transcribed by Jag Martinez Authenticated and [facility]
--- NOTE | 2021-12-12 14:36 | ECG_ITS ---
APPROVED REPORT Exam: Resting ECG HR:103 bpm ECG Measurements Heart Rate 103 AXES NM 152 P 52 QRSd 79 QRS 20 QT 325 T 59 QTc 385 Conclusion SINUS TACHYCARDIA ABNORMAL RHYTHM ECG UNCONFIRMED REPORT Electronically signed by : Suraj Cordoba MD 12/13/2021 17:09:51
--- NOTE | 2021-12-12 14:56 | HMH.EDGENADL ---
Discharge Plan Disposition Patient Disposition: Admitted As Inpatient Condition: Good Clinical Impressions Clinical Impression: Pulmonary embolism, blood-clot, obstetric, condition, Pneumonia Discharge ED Provider: Romero Moreira General Adult HPI General Chief complaint: PAIN Stated complaint: left side pain Time Seen by Provider: 12/12/21 14:10 Mode of Arrival: Wheelchair Source of Information: Patient Limitations: No Limitations Description of Symptoms (Recalled from ER Triage Doc. by RN): to ed per wheelchair pt sent from dr najera's office for eval due to lt side chest back pain. pt seen last thursday at [facility] dx with PE placed on eliquis. pt seen by dr najera to day for follow up pt c-sec 11/22. dr najera states pt c/o increasing pain and sob. pt admits to ed c/o increasing pain. History of Present Illness HPI narrative: This is a 21-year-old female with history of PE presenting with chest pain, shortness of breath. Patient had section on 11/22 without complication, other than lower extremity swelling. Thursday, 12/09, patient began feeling short of breath with left upper abdominal pain and left shoulder pain. Went to outside ED where she was diagnosed with left lower lobe and left lingular pulmonary emboli with associated pulmonary wedge infarctions. She was started on Eliquis and has been taking it daily since that time. Patient went to have routine follow-up today, where primary care stated that she looked and felt much worse, so was instructed to follow-up at the emergency department. Patient denies fevers, chills, nausea, vomiting, cough, hemoptysis, dysuria, hematuria, flank pain, abdominal pain. Chest pain is left lower chest, radiates to her left shoulder blade, is 7 out of 10, sharp/stabbing, made better by taking shallow breaths. It is made worse by taking deep breaths and lying back on her back. Related Data Home Medications Medication Instructions Recorded Confirmed albuterol sulfate 90 mcg/actuation g inhalation 12/12/21 12/12/21 aerosol inhaler (ProAir HFA) apixaban 5 mg tablet (Eliquis) 5 mg PO BID 12/12/21 12/12/21 Allergies Allergy/AdvReac Type Severity Reaction Status Date / Time No Known Allergies Allergy Verified 12/12/21 13:35 PFSH PFS Medical History Pulmonary embolism, blood-clot, obstetric, condition Surgical History S/P Family History Other No significant family history Social History (Updated 12/09/21 @ 10:51 by Prachi Najera MD) Smoking Status: Never smoker alcohol intake: never substance use type: former substance user and marijuana current occupational status: other Travel in the last 8 weeks: None ROS Obtained: Yes All systems reviewed & no additional complaints except as documented Physical Exam General General appearance: alert and in no apparent distress Head Head exam: atraumatic, normocephalic and normal inspection Eye Eye exam: Present normal appearance, PERRL and EOMI ENT ENT exam: Present normal exam, normal oropharynx, mucous membranes moist, TM's normal bilaterally and normal external ear exam Neck Neck exam: Present normal inspection, full ROM and trachea midline; Absent meningismus or lymphadenopathy Chest Chest inspection: Present normal inspection and symmetric chest wall rise; Absent tenderness Respiratory Respiratory exam: Absent normal lung sounds bilaterally (Decreased breath sounds left lower lung cruz) or respiratory distress Cardiovascular Cardiovascular exam: Present normal rhythm and tachycardia; Absent JVD Abdominal Exam Abdominal exam: Present soft and normal bowel sounds; Absent distention, tenderness or guarding Extremities Exam Extremities exam: Present normal inspection, full ROM and normal capill
[2021-12-12 14:57] LABS: Coronavirus 19, PCR Not Detected (NotDetected); Influenza A, PCR Not Detected (NotDetected); Influenza B, PCR Not Detected (NotDetected)
[2021-12-12 15:04] LABS: Alanine Aminotransferase 21 U/L (12-78); Albumin Level 3.9 g/dl (3.5-5.0); Albumin/Globulin Ratio 1.1 (1.1-1.8); Alkaline Phosphatase 116 U/L (38-126); Anion Gap 13.8 mEq/L (5-15); Aspartate Amino Transferase 21 U/L (14-36); Basophils # 0.1 K/mm3 (0-0.2); Basophils % 0.5 % (0.1-2.0); Bilirubin,Total 0.6 mg/dl (0.2-1.3); Blood Urea Nitrogen 9 mg/dl (7-17); Calcium 9.3 mg/dl (8.4-10.2); Carbon Dioxide 26 mmol/L (22.0-30.0); Chloride 104 mmol/L (98-107); Creatinine Clearance Estimated 136 mL/min (50-200); Eosinophils # 0.1 K/mm3 (0.0-0.4); Estimated Glomerular Filt Rate 89 ml/min (>60); GFR (African American) 108 ML/MIN (>60); Globulin 3.6 g/dL (1.3-3.2); Glucose 106 mg/dl (74-100); Hematocrit 33.4 % (37.0-47.0); Hemoglobin 10.5 g/dL (12.2-16.2); Lymphocytes # 1.5 K/mm3 (0.7-4.5); Mean Corpuscular HGB Conc 31.5 g/dL (31.8-35.4); Mean Corpuscular Hemoglobin 27.2 pg (27.0-31.2); Mean Corpuscular Volume 86.3 fl (81-99); Mean Platelet Volume 9.2 fl (7.4-10.4); Monocytes # 0.7 K/mm3 (0.1-1.0); Monocytes % 5.7 % (1.7-9.3); Neutrophils # 9.1 K/mm3 (1.8-7.8); Neutrophils % 79.8 % (37.0-80.0); Platelet Count 397 K/mm3 (142-424); Potassium 3.8 mmoL/L (3.5-5.1); Red Blood Count 3.88 M/mm3 (4.20-5.40); Red Cell Distribution Width 16.7 % (11.5-17.5); Sodium 140 mmol/L (136-145); Total Protein,Serum 7.5 g/dl (6.3-8.2); White Blood Count 11.4 K/mm3 (4.8-10.8)
[2021-12-12 15:19] LABS: Troponin I < 0.01 ng/ml (0.00-0.034)
--- NOTE | 2021-12-12 16:05 | CT_ITS ---
PROCEDURE INFORMATION: Exam: CTA Chest With Contrast Exam date and time: 12/12/21 04:24 PM Age: 21 years old Clinical indication: Pain; Left-sided; Additional info: History of lll and lingular pe 12/09 TECHNIQUE: Imaging protocol: Computed tomographic angiography of the chest with contrast. 3D rendering (Not supervised by radiologist): MIP and/or 3D reconstructed images were created by the technologist. Radiation optimization: All CT scans at this facility use at least one of these dose optimization techniques: automated exposure control; mA and/or kV adjustment per patient size (includes targeted exams where dose is matched to clinical indication); or iterative reconstruction. Contrast material: ISOVUE 370; Contrast volume: 70 ml; Contrast route: INTRAVENOUS (IV); COMPARISON: CR XR CHEST PORTABLE 12/12/21 02:45 PM FINDINGS: Pulmonary arteries: Left lower lobe pulmonary embolus. Aorta: Unremarkable. No aortic aneurysm. No aortic dissection. Lungs: Left lower lobe pneumonia. Pleural spaces: Left pleural effusion. Heart: RV/LV ratio 0.8. No cardiomegaly. No pericardial effusion. Lymph nodes: Unremarkable. No enlarged lymph nodes. Bones/joints: Unremarkable. No acute fracture. Soft tissues: Unremarkable. IMPRESSION: 1. Left lower lobe pulmonary embolus. 2. No CT evidence of right heart strain. RV/LV ratio is 0.8. 3. Left lower lobe pneumonia. 4. Left pleural effusion.
--- NOTE | 2021-12-12 16:25 | PC.NURSE ---
ct came to nurse's station stating pt is unable to lay flat on ct table due to pain. informed md new verbal orders given
--- NOTE | 2021-12-12 16:26 | PC.NURSE ---
PT GONE TO CT VIA W/C , RADIOLOGY CAME OUT BECAUSE PT CAN NOT LIE FLAT DUE TO PAIN , NEW MED ORDERS GIVEN
--- NOTE | 2021-12-12 16:59 | PC.NURSE ---
ROUNDED ON PT , NO NEEDS AT THIS TIME
--- NOTE | 2021-12-12 17:41 | PC.NURSE ---
2ND TROP CANCELLED PER MD , LAB AWARE
--- NOTE | 2021-12-12 17:46 | PC.NURSE ---
ER SPEAKING WITH DR LIU REGARDING ADMISSION
--- NOTE | 2021-12-12 18:02 | PC.NURSE ---
HOUSE CALLED FOR BED
--- NOTE | 2021-12-12 18:20 | PC.NURSE ---
pt updated on plan of care
--- NOTE | 2021-12-12 18:36 | PC.NURSE ---
PT REQUESTING MORE PAIN MEDS
--- NOTE | 2021-12-12 18:45 | PC.NURSE ---
report received from maria eugenia chen
--- NOTE | 2021-12-12 19:04 | PC.NURSE ---
pt arrived to floor via wheel chair at this time
[2021-12-13] VITALS (7 sets, daily range): BP systolic 112–137; BP diastolic 59–75; PULSE 75–110; RESP 16–18; TEMP 36.6–36.7; O2SAT 92–100; BMI 35.4
--- NOTE | 2021-12-13 05:56 | PC.NURSE ---
Patient admitted to floor. Patient is a&o x4. Patient does complaint of lt shoulder pain which is relived by pain meds on jun. Patient gave warm compress for comfort. Lungs sounds are diminished on left side. Patient remains on room air tolerating well.
--- NOTE | 2021-12-13 07:32 | EXP.PHA.VTE ---
[facility] Pharmacy VTE Monitoring Patient Demographics Admission date: 12/12/21 Report Date: 12/13/21 Time: 07:32 Patient Allergies No Known Allergies Allergy (Verified 12/12/21 13:35) Height: 1.52 m Weight: 81.873 kg Current Active Problems (Updated 12/12/21 @ 17:54 by Romero Moreira MD) Pneumonia (Acute) Pulmonary embolism, blood-clot, obstetric, condition (Acute) VTE Risk Labs: VTE Related Lab Results Hgb 10.5 g/dL (12.2-16.2) L 12/12/21 14:17 Hct 33.4 % (37.0-47.0) L 12/12/21 14:17 Plt Count 397 K/mm3 (142-424) 12/12/21 14:17 BUN 9 mg/dl (7-17) 12/12/21 14:17 Creatinine 0.80 mg/dl (0.52-1.04) 12/12/21 14:17 Estimated Creat Clear 136 mL/min (50-200) 12/12/21 14:17 Was VTE Risk Assessment Performed: Yes VTE Score: 2 VTE Risk Level: Very Low Risk Prophylaxis VTE Prophylaxis Ordered?: Yes Types of VTE Prophylaxis: TEDS Knee High and Pharmacological Location of Applied Device: Bilateral Lower Extremeties Pharmacologic Type: Other (ELIQUIS)
--- NOTE | 2021-12-13 09:18 | EXP.HP ---
History of Present Illness *Admission Date: 12/12/21 *History of present illness: This is a 21-year-old female with history of PE presenting with chest pain, shortness of breath.? Patient had section on 11/22 without complication, other than lower extremity swelling.? Thursday, 12/09, patient began feeling short of breath with left upper abdominal pain and left shoulder pain.? Went to outside ED where she was diagnosed with left lower lobe and left lingular pulmonary emboli with associated pulmonary wedge infarctions.? She was started on Eliquis and has been taking it daily since that time.? Patient went to have routine follow-up today, where primary care stated that she looked and felt much worse, so was instructed to follow-up at the emergency department.? Patient denies fevers, chills, nausea, vomiting, cough, hemoptysis, dysuria, hematuria, flank pain, abdominal pain.? Chest pain is left lower chest, radiates to her left shoulder blade, is 7 out of 10, sharp/stabbing, made better by taking shallow breaths.? It is made worse by taking deep breaths and lying back on her back. the above as per ER documentation. with evaluation in the emergency room she was noted to be afebrile with O2 sats at 98% on room air. White blood cell count did show elevation at 11,400. She had a hemoglobin of 10.5 and hematocrit of 33.4. Repeat CTA of the chest revealed left lower lobe pulmonary embol,i left lower lobe pneumonia and left pleural effusion.she was given hydromorphone, hydrocodone, and Ketorolac for her Pain. This a.m. she continues to have chest discomfort Requiring Dilaudid. [facility] Medical History Pulmonary embolism, blood-clot, obstetric, condition Surgical History S/P Family History No significant family history Mother Social History (Updated 12/09/21 @ 10:51 by Prachi Najera MD) Smoking Status: Never smoker alcohol intake: never substance use type: former substance user and marijuana current occupational status: other Travel in the last 8 weeks: None Review of Systems Constitutional Constitutional: Denies fever(s) and Denies headache(s) Eyes Eyes: Denies change in vision ENT Ears, Nose, Mouth, and Throat: Denies dizziness, Denies otalgia, Denies headache(s), Denies sore throat and Denies vertigo *Cardiovascular Cardiovascular: Reports chest pain and Reports dyspnea *Respiratory Respiratory: Reports cough ( infrequent dry) and Reports dyspnea *Gastrointestinal Gastrointestinal: Denies change in bowel habits, Denies dyspepsia, Denies nausea and Denies vomiting *Genitourinary Genitourinary: Denies difficulty voiding *Musculoskeletal Musculoskeletal: Reports muscle cramps *Neurologic Neurologic: Denies confusion, Denies convulsions, Denies dizziness, Denies headache(s) and Denies vertigo Psychiatric Psychiatric: Denies confusion Meds Home Medications and Allergies Home Medications Medication Instructions Recorded Confirmed Type albuterol sulfate 90 mcg/actuation 90 mcg inhalation Q4HP PRN asthma 12/12/21 12/13/21 History aerosol inhaler (ProAir HFA) apixaban 5 mg tablet (Eliquis) 10 mg PO BID Blood thinner 12/12/21 12/13/21 History tramadol 50 mg tablet 50 mg PO Q6HP PRN Mild Pain (Scale 12/12/21 12/13/21 History Score 1-4) New Prescriptions to Start Prescriptions: Allergies Allergy/AdvReac Type Severity Reaction Status Date / Time No Known Allergies Allergy Verified 12/12/21 13:35 Exam Data for Last 24 hours Vital signs and Labs for Last 24 Hours: Temp Pulse Resp BP Pulse Ox 97.8 F 75 18 137/75 92 L 12/13/21 04:00 12/13/21 04:00 12/13/21 04:00 12/13/21 04:00 12/13/21 04:00 Laboratory Results - last 24 hr 12/12/21 14:17: WBC 11.4 H, RBC 3.88 L, Hgb 10.5 L, Hct 33.4 L, MCV 86
--- NOTE | 2021-12-13 10:56 | CA_ITS ---
FINAL REPORT CLINICAL HISTORY: PE, smoker FINDINGS: Color Doppler, duplex Doppler and compression sonography of the bilateral lower extremities was performed. There is no evidence of deep venous thrombosis from the level of the groin to the calf. The deep veins are patent and compressible. IMPRESSION: No evidence of deep venous thrombosis bilateral lower extremities. Reviewed, Interpreted and Dictated by Pranav Martini III, MD Transcribed by Jag Martinez Authenticated and [facility]
[2021-12-13 11:01] LABS: D-Dimer 1.03 ug/mL (0.0-0.5)
--- NOTE | 2021-12-13 11:42 | EXP.PULM.CON ---
History of Present Illness History of present illness: Ms. Mcdonald is a 21-year-old female presented to the hospital complaining worsening left-sided chest pain that worsens with breathing and coughing with minimal symptoms of respiratory status progressively getting worse since Thursday, was seen at [facility] on Thursday diagnosed with pulmonary embolism, initiated on apixaban 5 mg twice daily seen her PRESCRIPTION CLERK LENSES physician thought to be having respiratory distress and patient was sent to the ER for further evaluation. Chest pain worsens with coughing and movement. [facility] Medical History Pulmonary embolism, blood-clot, obstetric, condition Surgical History S/P Family History No significant family history Mother Social History (Updated 12/09/21 @ 10:51 by Prachi Najera MD) Smoking Status: Never smoker alcohol intake: never substance use type: former substance user and marijuana current occupational status: other Travel in the last 8 weeks: None Review of Systems Constitutional Constitutional: Denies fatigue and Denies headache(s) Eyes Eyes: Denies eye discharge, Denies dry eyes, Denies irritation and Denies itchy eyes ENT Ears, Nose, Mouth, and Throat: Denies dizziness, Denies headache(s), Denies lip swelling, Denies throat swelling and Denies vertigo *Cardiovascular Cardiovascular: Reports dyspnea and Reports dyspnea on exertion *Respiratory Respiratory: Denies chest congestion, Reports cough, Reports dyspnea, Reports dyspnea on exertion, Denies excessive phlegm production, Denies hemoptysis, Reports pain on inspiration, Reports pain with cough and Denies wheezing *Gastrointestinal Gastrointestinal: Denies abdominal pain, Denies belching and Denies cramping *Musculoskeletal Musculoskeletal: Denies back pain and Denies myalgias *Neurologic Neurologic: Denies confusion, Denies convulsions, Denies dizziness, Denies headache(s) and Denies vertigo Psychiatric Psychiatric: Denies confusion Endocrine Endocrine: Denies fatigue and Denies heat intolerance Hematologic/Lymphatic Hematologic/Lymphatic: Denies easy bleeding and Denies lymphadenopathy Allergic/Immunologic Allergic/Immunologic: Denies itchy eyes, Denies lip swelling, Denies throat swelling and Denies wheezing Pulmonology Exam Inpatient Vital signs and Labs for Last 24 Hours: Temp Pulse Resp BP Pulse Ox 97.8 F 75 18 137/75 92 L 12/13/21 04:00 12/13/21 04:00 12/13/21 04:00 12/13/21 04:00 12/13/21 04:00 Laboratory Results - last 24 hr 12/12/21 14:17: WBC 11.4 H, RBC 3.88 L, Hgb 10.5 L, Hct 33.4 L, MCV 86.3, MCH 27.2, MCHC 31.5 L, RDW 16.7, Plt Count 397, MPV 9.2, Neut % (Auto) 79.8, Lymph % (Auto) 13.0, Lyman % (Auto) 5.7, Eos % (Auto) 1.0, Baso % (Auto) 0.5, Neut # (Auto) 9.1 H, Lymph # (Auto) 1.5, Lyman # (Auto) 0.7, Eos # (Auto) 0.1, Baso # (Auto) 0.1 12/12/21 14:17: Sodium 140, Potassium 3.8, Chloride 104, Carbon Dioxide 26, Anion Gap 13.8, BUN 9, Creatinine 0.80, Estimated Creat Clear 136, Estimated GFR 89, Est GFR ( Amer) 108, Glucose 106 H, Calcium 9.3, Total Bilirubin 0.6, AST 21, ALT 21, Alkaline Phosphatase 116, Troponin I < 0.01, Total Protein 7.5, Albumin 3.9, Globulin 3.6 H, Albumin/Globulin Ratio 1.1 12/12/21 14:45: SARS-CoV-2 (PCR) Not detected, Influenza A Untype (PCR) Not detected, Influenza Type B (PCR) Not detected 12/13/21 09:58: D-Dimer 1.03 H I & O for Labs for Last 24 Hours: Intake & Output 12/10/21 12/11/21 12/12/21 12/13/21 23:59 23:59 23:59 23:59 Output Total 0 / 0 0 / 0 Balance 0 / 0 0 / 0 Weight 182 lb 180 lb 8 oz Head: normocephalic and atraumatic ENT: normal exam, normal oropharynx and mucous membranes moist Neck: normal inspection and full ROM Respiratory: respiratory distress, rhonchi, wheezes, crackles, dimi
[2021-12-13 12:47] LABS: C-Reactive Protein 298.7 mg/L (0-4)
--- NOTE | 2021-12-13 15:45 | PC.NURSE ---
PT IS RESTING IN BED WITH FAMILY AT BEDSIDE. ALERT AND ORIENTED X4. MEDICATED PER MAR FOR LEFT SIDED DISCOMFORT. PT STATES IT HURTS HER TO COUGH AND TO BREATHE DEEP. PT HAS BEEN USING HER INCENTIVE SPIROMETER MUCH SHE CAN TOLERATE. LUNG SOUNDS DIMINISHED ON THE LEFT SIDE. PT STATES HER PAIN IS IN HER LEFT SHOULDER AND THE LEFT SIDE OF HER BACK. AMBULATES TO THE BATHROOM. EATING AND DRINKING FAIR. REDNESS NOTED TO SCAR. WILL CONTINUE TO MONITOR.
[2021-12-14] VITALS (8 sets, daily range): BP systolic 100–142; BP diastolic 50–75; PULSE 64–112; RESP 14–18; TEMP 36.6–37.3; O2SAT 94–99; BMI 37.3
--- NOTE | 2021-12-14 04:45 | PC.NURSE ---
Patient a&o x4. Medicated for lt shoulder pain per mar. Lung sounds diminished on lt side. Patient using warm compress for comfort. Iv abx administered per jun. Patient is tolerating RA.
--- NOTE | 2021-12-14 09:12 | EXP.PN ---
Subjective *Date: 12/14/21 *Time: 09:12 Interval history: Subjectively feels a little better. Still with left pleuritic chest pain requiring IV ketorolac. Minimal cough. Denies shortness of breath. Exam Data for Last 24 hours Vital signs and Labs for Last 24 Hours: Temp Pulse Resp BP Pulse Ox 97.8 F 108 H 16 134/71 99 12/14/21 08:00 12/14/21 08:00 12/14/21 08:00 12/14/21 08:00 12/14/21 08:00 Laboratory Results - last 24 hr 12/13/21 09:58: D-Dimer 1.03 H 12/13/21 12:13: C-Reactive Protein 298.7 H I & O for Last 24 hours: Intake & Output 12/11/21 12/12/21 12/13/21 12/14/21 11:59 11:59 11:59 11:59 Intake Total 2400 / 2400 533 / 533 Output Total 0 / 0 150 / 150 Balance 2400 / 2400 383 / 383 Weight 180 lb 8 oz 190 lb 3.2 oz Constitutional Comments: Alert and oriented. No respiratory distress. Color is good. She is able to take deeper breaths today. Few crackles in the left base. No wheezes. Heart is regular. Assessment and Plan *Assessment and plan (1) Pneumonia: Status: Acute Category: Medical Code(s): J18.9 - Pneumonia, unspecified organism (2) Pulmonary embolism, blood-clot, obstetric, condition: Status: Acute Category: Medical Code(s): O88.23 - Thromboembolism in the puerperium (3) S/P : Status: Acute Category: Surgical Code(s): Z98.891 - History of uterine scar from previous surgery Assessment and plan all Dx Assessment and Plan All Dx:: Continue per orders. Encourage out of bed activity. Possibly discharge home tomorrow.
[2021-12-14 16:58] LABS: POC Glucose,Bedside 102 (70-110)
--- NOTE | 2021-12-14 18:11 | PC.NURSE ---
PT HAS BEEN PLEASANT T/O SHIFT, ALERT X4, INDEPENDENT. C/O PAIN X2 RELIEVED BY PRESCRIBED PAIN MEDS AND HEAT PACK TO L SHOULDER. SOME REDNESS AROUND C SECTION JERONIMO NOTED, NO COMPLAINTS ABOUT IT UNLESS USING IS, PT HAS BEEN SPLINTING AREA. LUNGS CLEAR AND DIMINISHED T/O. NON PRODUCTIVE COUGH. MOTHER AT BEDSIDE, CB/ PERSONAL ITEMS W/I REACH. NO CONCERNS AT THIS TIME.
[2021-12-15] VITALS: BP 111/64; PULSE 95; RESP 20; TEMP 36.7; O2SAT 98
[2021-12-15 00:51] VITALS: PULSE 89
[2021-12-15 00:52] VITALS: PULSE 87
--- NOTE | 2021-12-15 03:37 | PC.NURSE ---
Pt A&O x 4. Medicated per JUN this shift for pain and nausea w/ favorable results. ATBX given per JUN. Pt receiving scheduled breathing tx. 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 Lungs - diminished. Pt is on eliquis for PE. No other needs or complaints voiced at this time. Call light in reach, pts mother at bedside.
[2021-12-15 04:00] VITALS: BP 117/73; PULSE 93; RESP 18; TEMP 36.4; O2SAT 98
[2021-12-15 04:39] VITALS: BMI 38.0
--- NOTE | 2021-12-15 06:35 | PC.NURSE ---
Explained to pt need for urine and sputum specimen. Pt verbalized understanding. Pt states cough is still unproductive at this time. Hat and specimen cup placed in pts bathroom. Told pt to call out once she urinates. Call light in reach.
[2021-12-15 06:45] VITALS: PULSE 92; PULSE 94; O2SAT 98
--- NOTE | 2021-12-15 06:48 | PC.NURSE ---
urine collected and sent to lab.
[2021-12-15 08:00] VITALS: BP 140/76; PULSE 105; RESP 20; TEMP 37; O2SAT 97
--- NOTE | 2021-12-15 08:42 | EXP.DC.SUM ---
General Admission date:: 12/12/21 HPI HPI HPI: This is a 21-year-old female with history of PE presenting with chest pain, shortness of breath.? Patient had section on 11/22 without complication, other than lower extremity swelling.? Thursday, 12/09, patient began feeling short of breath with left upper abdominal pain and left shoulder pain.? Went to outside ED where she was diagnosed with left lower lobe and left lingular pulmonary emboli with associated pulmonary wedge infarctions.? She was started on Eliquis and has been taking it daily since that time.? Patient went to have routine follow-up today, where primary care stated that she looked and felt much worse, so was instructed to follow-up at the emergency department.? Patient denies fevers, chills, nausea, vomiting, cough, hemoptysis, dysuria, hematuria, flank pain, abdominal pain.? Chest pain is left lower chest, radiates to her left shoulder blade, is 7 out of 10, sharp/stabbing, made better by taking shallow breaths.? It is made worse by taking deep breaths and lying back on her back. the above as per ER documentation. with evaluation in the emergency room she was noted to be afebrile with O2 sats at 98% on room air. White blood cell count did show elevation at 11,400. She had a hemoglobin of 10.5 and hematocrit of 33.4. Repeat CTA of the chest revealed left lower lobe pulmonary embol,i left lower lobe pneumonia and left pleural effusion.she was given hydromorphone, hydrocodone, and Ketorolac for her Pain. This a.m. she continues to have chest discomfort Requiring Dilaudid. Exam Data for Last 24 hours Vital signs and Labs for Last 24 Hours: Temp Pulse Resp BP Pulse Ox 97.6 F 92 H 18 117/73 98 12/15/21 04:00 12/15/21 06:45 12/15/21 04:00 12/15/21 04:00 12/15/21 06:45 Laboratory Results - last 24 hr 12/14/21 16:48: POC Glucose 102 I & O for Last 24 hours: Intake & Output 12/12/21 12/13/21 12/14/21 12/15/21 11:59 11:59 11:59 11:59 Intake Total 2400 / 2400 773 / 773 900 / 900 Output Total 0 / 0 150 / 150 800 / 800 Balance 2400 / 2400 623 / 623 100 / 100 Weight 180 lb 8 oz 190 lb 3.2 oz 193 lb 11.2 oz Results Data Completed and Pending Labs on day of discharge: Labs from last 24 hours 12/14/21 16:48 POC Glucose 102 DS: Diagnosis Discharge Diagnosis (1) Pneumonia: Status: Acute (2) Pulmonary embolism, blood-clot, obstetric, condition: Status: Acute (3) S/P : Status: Acute Meds Home Medications and Allergies Home Medications Medication Instructions Recorded Confirmed Type albuterol sulfate 90 mcg/actuation 90 mcg inhalation Q4HP PRN asthma 12/12/21 12/13/21 History aerosol inhaler (ProAir HFA) apixaban 5 mg tablet (Eliquis) 10 mg PO BID Blood thinner 12/12/21 12/13/21 History amoxicillin 500 mg-potassium 1 tab PO TID #30 tabs 12/15/21 Rx clavulanate 125 mg tablet (Augmentin) tramadol 50 mg tablet 50 mg PO Q6HP PRN Mild Pain (Scale 12/15/21 Rx Score 1-4) #12 tabs New Prescriptions to Start Prescriptions: amoxicillin-pot clavulanate [Augmentin] Kale Alcaraz tramadol Kale Alcaraz Allergies Allergy/AdvReac Type Severity Reaction Status Date / Time No Known Allergies Allergy Verified 12/12/21 13:35 Discharge Plan Disposition Patient Disposition: Home, Self-Care Condition: Good Discharge Order Discharge Orders: Discharge Order (Routine); Ordered 12/15/21 Ordered By: Kale Alcaraz Follow up Plan Follow up with: Lotus Aldrich MD [Physician] - Enter time for follow up (in 7-10days ) Prescriptions/Medication Reconciliation: New amoxicillin-pot clavulanate [Augmentin] 500-125 mg tablet 1 tab PO TID Qty: 30 0RF Continued Eliquis 5 mg tablet 10 mg PO BID Rx Instructions: for 7 days, first dose on 12/10/21 albut
--- NOTE | 2021-12-15 09:25 | EXP.PN ---
Subjective *Date: 12/15/21 *Time: 09:25 Interval history: She rested better last night. Still with left-sided pleuritic pain but feels she can breathe deeper. Minimal cough. No fever Exam Data for Last 24 hours Vital signs and Labs for Last 24 Hours: Temp Pulse Resp BP Pulse Ox 98.6 F 105 H 20 140/76 97 12/15/21 08:00 12/15/21 08:00 12/15/21 08:00 12/15/21 08:00 12/15/21 08:00 Laboratory Results - last 24 hr 12/14/21 16:48: POC Glucose 102 I & O for Last 24 hours: Intake & Output 12/12/21 12/13/21 12/14/21 12/15/21 11:59 11:59 11:59 11:59 Intake Total 2400 / 2400 773 / 773 1380 / 1380 Output Total 0 / 0 150 / 150 800 / 800 Balance 2400 / 2400 623 / 623 580 / 580 Weight 180 lb 8 oz 190 lb 3.2 oz 193 lb 11.2 oz Constitutional Comments: She is alert and oriented. Color is good. No respiratory distress. Lungs with few crackles in the left base. No wheezes. Assessment and Plan *Assessment and plan (1) Pneumonia: Status: Acute Category: Medical Code(s): J18.9 - Pneumonia, unspecified organism (2) Pulmonary embolism, blood-clot, obstetric, condition: Status: Acute Category: Medical Code(s): O88.23 - Thromboembolism in the puerperium (3) S/P : Status: Acute Category: Surgical Code(s): Z98.891 - History of uterine scar from previous surgery Assessment and plan all Dx Assessment and Plan All Dx:: Clinically improved. She is stable for discharge home. She will continue on Augmentin for an additional 10 days as well as continue on her Eliquis. She will follow-up with Dr. Aldrich in 7 to 10 days.
--- NOTE | 2021-12-15 10:20 | PC.NURSE ---
DC INSTRUCTIONS WENT OVER WITH PT, MOTHER AT BEDSIDE.
--- NOTE | 2021-12-15 10:58 | PC.NURSE ---
PT WAITING ON RIDE.
--- NOTE | 2021-12-15 13:20 | EXP.DC.SUM ---
General Admission date:: 12/12/21 Discharge date: 12/15/21 HPI HPI HPI: This is a 21-year-old female with history of PE presenting with chest pain, shortness of breath.? Patient had section on 11/22 without complication, other than lower extremity swelling.? Thursday, 12/09, patient began feeling short of breath with left upper abdominal pain and left shoulder pain.? Went to outside ED where she was diagnosed with left lower lobe and left lingular pulmonary emboli with associated pulmonary wedge infarctions.? She was started on Eliquis and has been taking it daily since that time.? Patient went to have routine follow-up today, where primary care stated that she looked and felt much worse, so was instructed to follow-up at the emergency department.? Patient denies fevers, chills, nausea, vomiting, cough, hemoptysis, dysuria, hematuria, flank pain, abdominal pain.? Chest pain is left lower chest, radiates to her left shoulder blade, is 7 out of 10, sharp/stabbing, made better by taking shallow breaths.? It is made worse by taking deep breaths and lying back on her back. the above as per ER documentation. With evaluation in the emergency room she was noted to be afebrile with O2 sats at 98% on room air. White blood cell count did show elevation at 11,400. She had a hemoglobin of 10.5 and hematocrit of 33.4. Repeat CTA of the chest revealed left lower lobe pulmonary embol, left lower lobe pneumonia and left pleural effusion. She was given hydromorphone, hydrocodone, and Ketorolac for her Pain. The following AM at time of exam she continued to have chest discomfort requiring Dilaudid. Hospital Course Hospital Course Hospital Course: On admission patient was started on Rocephin. Zithromax was added for her pneumonia. She continued with IV Ketorolac for her pleuritic type chest pain. She did gradually begin to feel better with minimal cough and was able to take deeper breaths. She had no fever. Pulmonology was consulted with the following documentation: Plan #Acute pulmonary embolism: #Community-acquired pneumonia: #Left pleural effusion: Ms. 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 CTA performed months admission personally reviewed the patient along with left lower lobe pulmonary embolism also noted to have left lower lobe airspace disease and left-sided pleural effusion. It is less likely that the left lower lobe airspace disease is an infract and is likely from pneumonia.? No RV strain noted.? Troponins normal Afebrile.? Mild leukocytosis.? Saturating 90% and above on room air.? Respiratory distress.? Auscultation clear except for rhonchi in left lower lung cruz. Patient is not planning for anytime soon and she is currently not breast-feeding. Plan: -Recommend to restart? Apixaban at 10 mg twice daily x 7 days? followed by 5 mg twice daily -Follow with D-dimer and lower extremity venous Doppler -Albuterol inhaler every 6 hours on as-needed basis -Continue cephalexin azithromycin, can be weaned to Augmentin 500 mg 3 times daily upon discharge for a total of 14 days.? We will follow the patient in pulmonary clinic in 7-10 days with repeat chest x-ray PA lateral. -Follow with sputum culture, CRP, urine strep and Legionella antigen On 12/15/2021 she was stable for discharge. She was to continue with meds as per medication reconciliation sheet to include Augmentin and Eliquis. She is to follow-up with Dr. Aldrich within 7-10 days. Exam Data for Last 24 hours Vital signs and Labs for Last 24 Hours: Temp Pu
--- NOTE | 2021-12-17 13:44 | CARE MANAGER ---
Attempted post-discharge phone interview and no answer.
[2021-12-18 16:12] LABS: Body Fluid Culture, Sterile Not indicated. (.); Legionella pneumophila Urinary Negative (Negative); Organism ID Not indicated. (.); Specimen Source Urine (.); Streptococcus pneumoniae Ag Negative (Negative)
== END 2021-12-15 11:12 | disposition home or self-care (01) ==
LOC: ER 18:02 → 2ND 18:38
PROVIDERS: Internal Medicine Pulmonary Disease; Admitting Provider Family Medicine; Emergency Provider Emergency Medicine; Visit Provider Family Medicine
DX: O88.83 Other embolism in the puerperium (principal); J18.9 Pneumonia, unspecified organism; I26.99 Other pulmonary embolism without acute cor pulmonale; O86.89 Other specified puerperal infections
CPT/HCPCS: 36415; 71045; 71275; 80053; 82962; 84484; 85025; 85378; 86140; 87899; 93005; 93970; 94640; 99285; C9803; G0378; J0456; J0696; J2405; Q9967; U0003; U0005

== ENCOUNTER → 2021-12-20 09:31 | Outpatient (CLI) | payer OTHER, SELFPAY ==
--- NOTE | 2021-12-20 09:34 | XR_ITS ---
FINAL REPORT CLINICAL HISTORY: PNM hx of recent PE and PNM shielded COMPARISON: December 12, 2021 FINDINGS: Two views of the chest were obtained. The heart size and pulmonary vascularity are within normal limits. The mediastinum is normal. There is persistent but partially improved left basilar opacity. A moderate left pleural effusion is stable. There is no pneumothorax. The bony thorax is intact. IMPRESSION: Persistent but partially improved left base opacity. Moderate but stable left pleural effusion. Reviewed, Interpreted and Dictated by Pranav Martini III, MD Transcribed by Jag Martinez Authenticated and [facility]
== END ==
PROVIDERS: Visit Provider Internal Medicine Pulmonary Disease
DX: J18.9 Pneumonia, unspecified organism (principal)
CPT/HCPCS: 71046

== ENCOUNTER → 2022-01-01 07:25 | Outpatient (CLI) | payer OTHER, SELFPAY ==
--- NOTE | 2022-01-01 07:31 | US_ITS ---
FINAL REPORT CLINICAL HISTORY: Effusion lt -- pt for thora but not enough fluid noted FINDINGS: US CHEST Limited sonographic images were obtained of the left side of the chest. There is minimal fluid in the left costophrenic angle that may be partially loculated. IMPRESSION: Minimal fluid in the left costophrenic angle. Reviewed, Interpreted and Dictated by Kamari Nickerson MD Transcribed by Jag Martinez Authenticated and [facility]
[2022-01-01 08:00] VITALS: BMI 36.1
--- NOTE | 2022-01-01 08:32 | XR_ITS ---
FINAL REPORT CLINICAL HISTORY: L lung thoracentesis-pleural effusion COMPARISON: 12/20/2021 FINDINGS: 2 views of the chest were obtained . The heart is normal in size. The mediastinum is within normal limits. There is a left base opacity likely due to pneumonia. There is no pneumothorax. Osseous structures are unremarkable. IMPRESSION: Left base opacity likely due to pneumonia. Reviewed, Interpreted and Dictated by Kamari Nickerson MD Transcribed by Yael Rock Authenticated and . [facility]
== END ==
PROVIDERS: PCP Internal Medicine Pulmonary Disease; Visit Provider Internal Medicine Pulmonary Disease
DX: J90 Pleural effusion, not elsewhere classified (principal)
CPT/HCPCS: 71046; 76604